=== PATIENT | female | born 1990 ===

== ENCOUNTER 2016-06-22 20:13 | Emergency (ER) | payer SELFPAY ==
--- NOTE | 2016-06-22 21:02 | RAD ---
Name: DOMINIC XIE Exam: Left hand Comparison: None Clinical history: Trauma. Left hand pain and swelling. Initial encounter. Findings: 3 views left hand are submitted. Bone density is normal. 3 views left hand are submitted. There is a tiny calcination's of the first of metacarpal flange joint which is old trauma or other inflammatory process. Similar calcifications identified near the fourth proximal interphalangeal joint. There is no fracture, dislocation, periosteal fracture foreign body. Carpal alignment is normal Impression: No acute bony abnormality
== END 2016-06-22 21:34 | disposition home or self-care (01) ==
LOC: ED 20:13
DX: S60.222A Contusion of left hand, initial encounter (principal); W03.XXXA Other fall on same level due to collision with another person, initial encounter; Y92.9 Unspecified place or not applicable